=== PATIENT | female | born 1995 | race Caucasian/White ===

== ENCOUNTER 2019-09-02 04:20 | Emergency (ER) | payer OTHER ==
[~2019-09-02] VITALS: Ht 157.5 cm; Wt 44.0 kg
[2019-09-02 04:40] VITALS: BP 117/84; Ht 157.5 cm; Wt 44.0 kg
== END 2019-09-02 05:02 | disposition other institution (70) ==
LOC: ED 04:20
DX: Z02.89 Encounter for other administrative examinations (principal)